=== PATIENT | female | born 1950 | race Caucasian/White ===

== ENCOUNTER 2017-09-04 08:18 | Outpatient (CLI) | payer MEDICARE ==
--- NOTE | 2017-09-04 14:36 | XRAY Report ---
DATE OF SERVICE: 09/04/2017 THREE VIEW RIGHT KNEE: 09/04/2017 CLINICAL INDICATION: Pain. FINDINGS: AP, lateral, sunrise views of the right knee demonstrate mild osteoarthritis. There is no evidence of fracture or dislocation. No effusion is present. IMPRESSION: MILD OSTEOARTHRITIS. TD: 09/04/2017 14:35
== END 2017-09-04 08:19 | disposition home or self-care (01) ==
LOC: DI 08:18
PROVIDERS: ATTEND Nurse Practitioner Family
DX: M17.11 Unilateral primary osteoarthritis, right knee (principal)

== ENCOUNTER 2017-11-10 13:34 | Outpatient (CLI) | payer MEDICARE, OTHER ==
--- NOTE | 2017-11-10 14:34 | XRAY Report ---
TWO VIEW CHEST: 11/10/2017 CLINICAL INDICATION: Shortness of breath, wheezing. FINDINGS: Frontal and lateral views of the chest are compared to CT of 03/03/2013. The cardiac silhouette is within normal limits. The lungs are clear. No effusion or pneumothorax is present. IMPRESSION: NORMAL CHEST. TD: 11/10/2017 14:32
== END 2017-11-10 13:35 | disposition home or self-care (01) ==
LOC: DI 13:34
PROVIDERS: ATTEND Nurse Practitioner Family
DX: R05 Cough (principal); R06.02 Shortness of breath
CPT/HCPCS: 71046

== ENCOUNTER 2019-02-02 06:58 | Outpatient (CLI) | payer MEDICARE, OTHER ==
--- NOTE | 2019-02-02 17:51 | CT Report ---
Reason: CERVICAL SPONDYLOSIS WITHOUT MYELOPATHY Procedure Date: 02/02/2019 Accession Number: [id number] / [id number] Procedure: CT - CERVICAL SPINE WO CPT Code: FULL RESULT: EXAM: CT CERVICAL SPINE WITHOUT CONTRAST DATE: 02/02/2019 07:13 AM. HISTORY: Cervical spondylosis without myelopathy. Neck pain for 7-10 years. History of spinal fusion. COMPARISONS: 04/19/2013 radiograph. TECHNIQUE: Thin-section axial images were acquired of the cervical spine without contrast. Post-processing: Coronal and sagittal reformats. Other: None. In accordance with CT protocol optimization, one or more of the following dose reduction techniques were utilized for this exam: automated exposure control, adjustment of mA and/or KV based on patient size, or use of iterative reconstructive technique. FINDINGS: Alignment: Grade 1 anterolisthesis of C4 on C5 measures 2.5 mm. Bones: No fractures. The patient may have had a partial left mastoidectomy. An anterior fusion procedure has been performed at C5-C6 with an anterior plate and vertebral body screws. There is fusion through the disk space. Autofusion is seen through the posterior elements of C4-C5. Interspace Levels/Facets: C1-C2: Severe osteophyte formation is at the anterior atlantoaxial junction. C2-C3: A mild posterior disk/osteophyte complex, severe right facet osteoarthritis, and mild left facet osteoarthritis cause mild spinal canal and minimal left foraminal narrowing. C3-C4: Anterior endplate spurring is present. Uncovertebral osteophytes, a mild posterior disk/osteophyte complex, and severe bilateral facet osteoarthritis cause minimal spinal canal and moderate left foraminal narrowing. C4-C5: Mild disk height loss is accompanied by anterior endplate spurring. A posterior disk/osteophyte complex and severe bilateral facet osteoarthritis cause moderate left foraminal narrowing. C5-C6: Uncovertebral osteophytes and moderate left facet osteoarthritis cause moderate bilateral foraminal narrowing. C6-C7: Severe disk height loss is accompanied by anterior endplate spurring. A posterior disk/osteophyte complex and severe left facet osteoarthritis cause mild right foraminal, moderate left foraminal, and mild spinal canal narrowing. C7-T1: Moderate left facet osteoarthritis causes mild left foraminal narrowing. T1-T2: Moderate disk height loss is accompanied by anterior endplate spurring. A posterior disk/osteophyte complex has no significant neurologic consequence. Musculature: Normal. No fatty atrophy. Other: Arterial calcifications indicate atherosclerosis. The lung apices are clear. IMPRESSION: 1. Grade 1 anterolisthesis of C4 on C5. 2. 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 3. Mild spinal canal narrowing at C2-C3 due to disk and posterior element degenerative changes. 4. Moderate left foraminal narrowing at C3-C4 due to disk and posterior element degenerative changes. 5. Moderate left foraminal narrowing at C4-C5 due to disk and posterior element degenerative changes. 6. Moderate bilateral foraminal narrowing at C5-C6 due to osteophytes. 7. Mild right foraminal, moderate left foraminal, and mild spinal canal narrowing at C6-C7 due to disk and posterior element degenerative changes. 8. Mild left foraminal narrowing at C7/T1 due to facet osteoarthritis. [facility]IA
== END 2019-02-02 06:59 | disposition home or self-care (01) ==
LOC: DI 06:58
PROVIDERS: ATTEND Internal Medicine
DX: M47.812 Spondylosis without myelopathy or radiculopathy, cervical region (principal); M48.02 Spinal stenosis, cervical region; M25.78 Osteophyte, vertebrae
CPT/HCPCS: 72125

== ENCOUNTER 2021-01-08 08:00 | Outpatient (CLI) | payer MEDICARE, OTHER ==
[2021-01-08 21:06] LABS: BASOPHILS # (AUTO) 0.1 10^3/uL (0.0-0.1); BASOPHILS % (AUTO) 0.7 %; EOSINOPHILS # (AUTO) 0.3 10^3/uL (0.0-0.7); EOSINOPHILS % (AUTO) 2.9 %; HCT - HEMATOCRIT 48.5 % (37.0-47.0); HGB - HEMOGLOBIN 16.1 g/dL (12.0-16.0); LYMPHOCYTES # (AUTO) 2.5 10^3/uL (1.5-3.5); LYMPHOCYTES % (AUTO) 27.2 %; MEAN CORPUSCULAR HEMOGLOBIN 33.7 pg (27.0-31.0); MEAN CORPUSCULAR HGB CONC 33.2 g/dL (32.0-36.0); MEAN CORPUSCULAR VOLUME 101.5 fL (81.0-99.0); MEAN PLATELET VOLUME 10.4 fL (7.9-10.8); MONOCYTES # (AUTO) 0.8 10^3/uL (0.0-1.0); MONOCYTES % (AUTO) 8.7 %; NEUTROPHILS # (AUTO) 5.5 10^3/uL (1.5-6.6); NEUTROPHILS % (AUTO) 60.2 %; PLT - PLATELET COUNT 341 10^3/uL (130-450); RED BLOOD COUNT 4.78 10^6/uL (4.20-5.40); WHITE BLOOD COUNT 9.1 x10^3/uL (4.8-10.8)
[2021-01-08 21:11] LABS: ALBUMIN 4.6 g/dL (3.2-5.5); ALBUMIN/GLOBULIN RATIO 1.3 (1.0-2.2); BILIRUBIN,TOTAL 1.1 mg/dL (0.2-1.0); CALCIUM 9.6 mg/dL (8.5-10.3); CREATININE 0.8 mg/dL (0.4-1.0); TOTAL PROTEIN 8.2 g/dL (6.7-8.2)
[2021-01-08 21:28] LABS: THYROID STIMULATING HORMONE 33.67 uIU/mL (0.34-5.60)
[2021-01-08 22:15] LABS: FREE T4 (FREE THYROXINE) 0.49 ng/dL (0.58-1.64)
== END 2021-01-08 23:59 | disposition home or self-care (01) ==
LOC: LAB.N 08:00
PROVIDERS: ATTEND Family Medicine
DX: R07.9 Chest pain, unspecified (principal)
CPT/HCPCS: 36415; 80053; 84439; 84443; 84484; 85025

== ENCOUNTER 2022-11-14 11:57 | Outpatient (CLI) | payer MEDICARE, OTHER ==
[2022-11-14 14:22] LABS: BASOPHILS # (AUTO) 0.1 10^3/uL (0.0-0.1); BASOPHILS % (AUTO) 0.7 %; EOSINOPHILS # (AUTO) 0.4 10^3/uL (0.0-0.7); EOSINOPHILS % (AUTO) 3.8 %; HCT - HEMATOCRIT 49.6 % (37.0-47.0); HGB - HEMOGLOBIN 16.3 g/dL (12.0-16.0); LYMPHOCYTES # (AUTO) 2.4 10^3/uL (1.5-3.5); LYMPHOCYTES % (AUTO) 25.6 %; MEAN CORPUSCULAR HEMOGLOBIN 33.8 pg (27.0-31.0); MEAN CORPUSCULAR HGB CONC 32.9 g/dL (32.0-36.0); MEAN CORPUSCULAR VOLUME 102.9 fL (81.0-99.0); MEAN PLATELET VOLUME 10.3 fL (7.9-10.8); MONOCYTES # (AUTO) 1.1 10^3/uL (0.0-1.0); MONOCYTES % (AUTO) 11.2 %; NEUTROPHILS # (AUTO) 5.5 10^3/uL (1.5-6.6); NEUTROPHILS % (AUTO) 58.4 %; PLT - PLATELET COUNT 332 10^3/uL (130-450); RED BLOOD COUNT 4.82 10^6/uL (4.20-5.40); RED CELL DISTRIBUTION WIDTH 12.5 % (12.0-15.0); WHITE BLOOD COUNT 9.4 x10^3/uL (4.8-10.8)
[2022-11-14 14:54] LABS: ALBUMIN 4.3 g/dL (3.2-5.5); ALBUMIN/GLOBULIN RATIO 1.3 (1.0-2.2); ALKALINE PHOSPHATASE 64 IU/L (42-121); ALT ALANINE AMINOTRANSFERASE 37 IU/L (10-60); AST ASPARTATE AMINOTRANSFERASE 33 IU/L (10-42); BILIRUBIN,TOTAL 1.1 mg/dL (0.2-1.0); BUN - BLOOD UREA NITROGEN 16 mg/dL (6-20); CALCIUM 9.1 mg/dL (8.5-10.3); CARBON DIOXIDE - CO2 28 mmol/L (21-32); CHLORIDE 107 mmol/L (101-111); CHOL/HDL RATIO 2.1 (<4.4); CHOLESTEROL 151 mg/dL; CREATININE 0.7 mg/dL (0.4-1.0); GFR - MDRD 82 (>89); GLUCOSE 95 mg/dL (70-100); HDL CHOLESTEROL 72 mg/dL; LDL CHOLESTEROL,CALCULATED 70 mg/dL; POTASSIUM 4.5 mmol/L (3.5-5.0); SODIUM 141 mmol/L (135-145); TOTAL PROTEIN 7.7 g/dL (6.7-8.2); TRIGLYCERIDES 44 mg/dL; VLDL CHOLESTEROL 9 mg/dL
[2022-11-14 15:03] LABS: THYROID STIMULATING HORMONE 1.68 uIU/mL (0.34-5.60)
[2022-11-14 21:20] LABS: ESTIMATED AVERAGE GLUCOSE 126 mg/dL (70-100)
== END 2022-11-14 11:58 | disposition home or self-care (01) ==
LOC: LAB.S 11:57
PROVIDERS: ATTEND Internal Medicine
DX: E11.9 Type 2 diabetes mellitus without complications (principal); I25.10 Atherosclerotic heart disease of native coronary artery without angina pectoris; E03.9 Hypothyroidism, unspecified; M06.4 Inflammatory polyarthropathy
CPT/HCPCS: 36415; 80053; 80061; 83036; 83721; 84443; 85025

== ENCOUNTER 2022-11-21 07:00 | Outpatient (CLI) | payer MEDICARE, OTHER ==
--- NOTE | 2022-11-22 13:22 | XRAY Report ---
PROCEDURE: Finger(s) RT INDICATIONS: RIGHT THUMB PAIN TECHNIQUE: AP hand, 3 views of the first finger(s) acquired. COMPARISON: None. FINDINGS: Bones: No fractures or dislocations. No suspicious bony lesions. There is osteoarthritic changes, m oderate at the first carpometacarpal joint, and severe at the second and third distal interphalangeal joints, and mild at the first metacarpal phalangeal joint and multiple interphalangeal joints. There is periarticular bony erosion. Soft tissues: No suspicious soft tissue calcifications or masses. IMPRESSION: Severe osteoarthritic changes. 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 Reviewed by: William Frazier MD on 11/22/2022 1:21 PM PDT Approved by: William Frazier MD on 11/22/2022 1:21 PM PDT Station ID: [id number]
--- NOTE | 2022-11-22 13:24 | XRAY Report ---
PROCEDURE: Shoulder 3 View LT INDICATIONS: LEFT SHOULDER PAIN TECHNIQUE: 3 views of the shoulder were acquired. COMPARISON: None. FINDINGS: Bones: No fractures or dislocations. No suspicious bony lesions. Mild osteoarthritis of the glenoh umeral joint. Visualized ribs appear intact. Soft tissues: No suspicious soft tissue calcifications. IMPRESSION: 1. No acute osseous abnormality. If there is clinical suspicion for internal derangement, MRI can be helpful for further evaluation 2. Mild osteoarthritis. Reviewed by: William Frazier MD on 11/22/2022 1:22 PM PDT Approved by: William Frazier MD on 11/22/2022 1:22 PM PDT Station ID: [id number]
== END 2022-11-21 23:59 | disposition home or self-care (01) ==
LOC: DI.S 07:00
PROVIDERS: ATTEND Physician Assistant
DX: M18.11 Unilateral primary osteoarthritis of first carpometacarpal joint, right hand (principal); M19.041 Primary osteoarthritis, right hand; M19.012 Primary osteoarthritis, left shoulder

== ENCOUNTER 2023-09-21 10:38 | Outpatient (CLI) | payer MEDICARE, OTHER ==
--- NOTE | 2023-09-21 15:28 | XRAY Report ---
PROCEDURE: Cervical Spine 2-3V INDICATIONS: ARTHRITIS,CERVICAL SPINE TECHNIQUE: 3 view(s) of the cervical spine were acquired. COMPARISON: Cervical spine radiographs 04/19/2013. FINDINGS: Bones: No fractures or dislocations to the C7 level. The lateral masses of C1 appear intact on the odontoid view. No suspicious bony lesions. Status post anterior fusion from C5-C6. No evidence of h ardware complication. Trace anterolisthesis of C4 on C5. Multilevel disc height loss, endplate sclero sis and osteophytosis Soft tissues: No prevertebral soft tissue swelling. IMPRESSION: No acute fracture or traumatic subluxation. Status post C5-C6 ACDF without evidence of hardware complication. Moderate multilevel discogenic degenerative changes of the cervical spine.. Reviewed by: Sandra Castellanos MD on 09/21/2023 3:27 PM PST Approved by: Sandra Castellanos MD on 09/21/2023 3:27 PM PST Station ID: [id number]
[2023-09-21 15:34] LABS: BASOPHILS # (AUTO) 0.1 10^3/uL (0.0-0.1); BASOPHILS % (AUTO) 0.6 %; EOSINOPHILS # (AUTO) 0.2 10^3/uL (0.0-0.7); EOSINOPHILS % (AUTO) 2.4 %; HCT - HEMATOCRIT 50.6 % (37.0-47.0); HGB - HEMOGLOBIN 16.7 g/dL (12.0-16.0); LYMPHOCYTES # (AUTO) 3.1 10^3/uL (1.5-3.5); LYMPHOCYTES % (AUTO) 31.1 %; MEAN CORPUSCULAR HEMOGLOBIN 34.5 pg (27.0-31.0); MEAN CORPUSCULAR VOLUME 104.5 fL (81.0-99.0); MEAN PLATELET VOLUME 10.3 fL (7.9-10.8); MONOCYTES % (AUTO) 10.1 %; NEUTROPHILS # (AUTO) 5.6 10^3/uL (1.5-6.6); NEUTROPHILS % (AUTO) 55.6 %; PLT - PLATELET COUNT 347 10^3/uL (130-450); RED BLOOD COUNT 4.84 10^6/uL (4.20-5.40); RED CELL DISTRIBUTION WIDTH 12.3 % (12.0-15.0); WHITE BLOOD COUNT 10.1 x10^3/uL (4.8-10.8)
[2023-09-21 15:47] LABS: ALBUMIN 4.5 g/dL (3.2-5.5); ALBUMIN/GLOBULIN RATIO 1.3 (1.0-2.2); ALKALINE PHOSPHATASE 77 IU/L (42-121); ALT ALANINE AMINOTRANSFERASE 21 IU/L (10-60); AST ASPARTATE AMINOTRANSFERASE 22 IU/L (10-42); BILIRUBIN,TOTAL 0.9 mg/dL (0.2-1.0); BUN - BLOOD UREA NITROGEN 10 mg/dL (6-20); CALCIUM 10.1 mg/dL (8.5-10.3); CARBON DIOXIDE - CO2 27 mmol/L (21-32); CHLORIDE 104 mmol/L (101-111); CHOL/HDL RATIO 3.6 (<4.4); CHOLESTEROL 195 mg/dL; CREATININE 0.7 mg/dL (0.6-1.3); GFR - MDRD 82 (>89); GLUCOSE 109 mg/dL (74-104); HDL CHOLESTEROL 54 mg/dL; LDL CHOLESTEROL,CALCULATED 118 mg/dL; LDL/HDL RATIO 2.2 (<4.4); POTASSIUM 4.3 mmol/L (3.5-4.5); SODIUM 137 mmol/L (135-145); TOTAL PROTEIN 7.9 g/dL (6.4-8.9); TRIGLYCERIDES 116 mg/dL (48-352); VLDL CHOLESTEROL 23 mg/dL
[2023-09-21 15:58] LABS: THYROID STIMULATING HORMONE 7.22 uIU/mL (0.34-5.60)
[2023-09-21 16:04] LABS: ESTIMATED AVERAGE GLUCOSE 117 mg/dL (70-100); HEMOGLOBIN A1c% 5.7 % (4.27-6.07)
== END 2023-09-21 10:39 | disposition home or self-care (01) ==
LOC: LAB.S 10:38 → DI.S 10:39
PROVIDERS: ATTEND Internal Medicine
DX: M50.30 Other cervical disc degeneration, unspecified cervical region (principal); G25.81 Restless legs syndrome; I25.10 Atherosclerotic heart disease of native coronary artery without angina pectoris; E11.9 Type 2 diabetes mellitus without complications; E03.9 Hypothyroidism, unspecified; J34.89 Other specified disorders of nose and nasal sinuses; R09.82 Postnasal drip; Z98.1 Arthrodesis status
CPT/HCPCS: 36415; 80053; 80061; 83036; 83721; 84439; 84443; 85025

== ENCOUNTER 2023-11-04 12:21 | Outpatient (CLI) | payer MEDICARE, OTHER ==
[2023-11-04 14:38] LABS: ABSOLUTE RETICS # AUTO 0.078 10^6/uL (0.020-0.110); RETICULOCYTE COUNT % (AUTO) 1.56 % (0.5-2.3)
[2023-11-04 15:10] LABS: THYROID STIMULATING HORMONE 3.62 uIU/mL (0.34-5.60)
[2023-11-04 15:16] LABS: FERRITIN 112.1 ng/mL (11.0-306.8)
== END 2023-11-04 12:22 | disposition home or self-care (01) ==
LOC: LAB.S 12:21
PROVIDERS: ATTEND Internal Medicine
DX: R78.89 Finding of other specified substances, not normally found in blood (principal); E03.9 Hypothyroidism, unspecified
CPT/HCPCS: 36415; 82607; 82728; 83540; 84443; 84466; 85045